=== PATIENT | male | born 1945 | race Caucasian/White ===

== ENCOUNTER → 2018-11-25 | Outpatient (CLI) | payer MEDICARE, OTHER ==
--- NOTE | 2018-11-25 13:56 | RADIOLOGY REPORT (SQ) ---
EXAM DESCRIPTION: NM 3 PHASE BONE SCAN COMPLETED DATE/TIME: 11/25/2018 12:14 pm REASON FOR STUDY: M25.552 PAIN IN LEFT HIP, M54.16 RADICULOPATHY, LUMBAR REGION M25.552 PAIN IN LEF T HIP M54.16 RADICULOPATHY, LUMBAR REGION COMPARISON: Outside plain films from 11/14/2018 RADIONUCLIDE AND DOSE: 21.6 millicuries Tc99m MDP. The route of agent administration: Intravenous. ADDITIONAL DRUGS AND DOSES: None. TECHNIQUE: Following injection of the radiopharmaceutical, serial blood flow images acquired. Equil ibrium blood pool images then acquired. Routine delayed images at 3 hour acquired of the areas of cl inical concern with additional focused images as needed. AREA OF INTEREST: Bony pelvis, hips, lower lumbar spine LIMITATIONS: None. FINDINGS: VASCULAR FLOW IMAGES: No asymmetry or focal areas of hyperemia. BLOOD POOL IMAGES: No asymmetry or focal areas of soft-tissue hyper-perfusion. BONES: Normal visualization without areas of photopenia or increased bony uptake of radiopharmaceutic al. KIDNEYS: Symmetric excretion without obstruction. OTHER: No other significant finding. IMPRESSION: NORMAL 3 PHASE BONE SCAN. COMMENT: Quality measure 147: Current bone scan is compared with any available plain radiographs, p rior bone scans, and CT/MRI. TECHNICAL DOCUMENTATION: JOB ID: [id number] [employer] [place] [employer] [place]- All Rights Reserved Reading location - IP/workstation name: [email or web address]
== END ==
LOC: RAD 08:17
PROVIDERS: ATTEND Family Medicine
DX: M25.552 Pain in left hip (principal); M54.16 Radiculopathy, lumbar region
CPT/HCPCS: 78315; A9561; Q9969

== ENCOUNTER → 2018-11-26 | Outpatient (CLI) | payer OTHER ==
--- NOTE | 2018-11-26 12:12 | RADIOLOGY REPORT (SQ) ---
EXAM DESCRIPTION: MRI LUMBAR SPINE WITHOUT COMPLETED DATE/TIME: 11/26/2018 11:19 am REASON FOR STUDY: LUMBAR RADICULOPATHY (M54.16), PAIN IN LEFT HIP (M25.552) M25.552 PAIN IN LEFT HI P M54.16 RADICULOPATHY, LUMBAR REGION COMPARISON: Bone scan dated 11/25/2018 TECHNIQUE: Sagittal and Axial imaging includes T1, T2, STIR and gradient echo sequences. Coronal T2/ HASTE imaging. LIMITATIONS: None. FINDINGS: VISUALIZED UPPER ABDOMEN: Limited evaluation. No acute or suspicious findings suggested. SEGMENTATION: No transitional anatomy. The lowest well-developed disc space is labeled L5-S1. ALIGNMENT: There is grade 1 anterolisthesis of L4 on L5. VERTEBRAE: Intact. BONE MARROW: Multilevel endplate changes. There is fatty replacement from L1-L2 through L4-L5. DISC SIGNAL: Normal. No significant abnormal signal or loss of height. POSTERIOR ELEMENTS: Generally intact. No pars defect evident. HARDWARE: None in the spine. CORD AND CONUS: Normal in size and signal intensity. Conus at the appropriate level. SOFT TISSUES: No aortic aneurysm seen. No bulky retroperitoneal adenopathy or mass. No paraspinal mas s or fluid. L1-L2: Disc space narrowing. Bilateral facet arthropathy. No appreciable nerve root impingement. L2-L3: Disc space narrowing and annular disc bulging with facet arthropathy. No high-grade central s tenosis. Mild bilateral foraminal stenosis. L3-L4: Marked disc space narrowing. Facet arthropathy. No high-grade central stenosis. There is bi lateral foraminal narrowing right greater than left. L4-L5: Broad-based annular disc bulging along with anterolisthesis of L4 on L5. This results in mode rate central canal stenosis. There is mild bilateral foraminal narrowing. L5-S1: Normal disc height. No central stenosis or foraminal narrowing. LOWER THORACIC: Incompletely imaged. No stenosis seen. SACRUM: Visualized upper sacrum intact. OTHER: No other significant findings. IMPRESSION: 1. Multilevel spondylosis. 2. Mild bilateral foraminal narrowing at L2-L3 secondary to annular disc bulging and facet arthropat hy. 3. Bilateral foraminal narrowing at L3-L4 right greater than left secondary to annular disc bulging and facet arthropathy. 4. Moderate central canal stenosis at L4-L5 with mild bilateral foraminal narrowing. TECHNICAL DOCUMENTATION: JOB ID: [id number] [employer]- All Rights Reserved Reading location - IP/workstation name: [email or web address]
== END ==
LOC: RAD 09:30
PROVIDERS: ATTEND Orthopaedic Surgery
DX: M51.16 Intervertebral disc disorders with radiculopathy, lumbar region (principal); M48.061 Spinal stenosis, lumbar region without neurogenic claudication; M25.552 Pain in left hip
CPT/HCPCS: 72148